=== PATIENT | male | born 1960 | race Caucasian/White ===

== ENCOUNTER 2024-09-11 07:44 | Inpatient (IN) | payer BC, SELFPAY ==
[2024-08-22 13:55] VITALS: BMI 39.4
[2024-08-22 14:01] LABS: Hematocrit 43.7 % (39.0-52.0); Hemoglobin 14.4 g/dL (13.0-18.0); Mean Corpuscular Hgb 29.6 pg (27.0-31.0); Mean Corpuscular Volume 89.7 fL (80.0-94.0); Mean Platelet Volume 11.7 fL (7.4-10.4); Platelet Count 155 10^3/uL (130-400); Red Blood Cell Count 4.87 10^6/uL (4.70-6.10); Red Cell Dist. Width 12.8 % (11.5-14.5); White Blood Cell Count 6.9 10^3/uL (4.8-10.8)
[2024-08-22 14:38] LABS: ALT (SGPT) 21 U/L (0-50); AST (SGOT) 29 U/L (17-59); Albumin 4.3 g/dl (3.5-5.0); Alkaline Phosphatase 77 U/L (38-126); Blood Urea Nitrogen 13 mg/dl (9-20); Calcium 9.7 mg/dl (8.4-10.2); Carbon Dioxide 27 mmol/L (22-30); Chloride 103 mmol/L (98-107); Estimated Creatinine Clearance 99 ml/min; Glucose 92 mg/dl (70-99); Potassium 4.1 mmol/L (3.5-5.1); Sodium 138 mmol/L (135-145); Total Bilirubin 0.3 mg/dl (0.2-1.3); Total Protein 6.7 g/dl (6.3-8.2); eGFR > 60.00
[2024-08-23 11:39] LABS: Glycohemoglobin (HgbA1c) 5.4 % (4.0-5.6)
[2024-09-04 15:46] VITALS: BMI 39.4
[2024-09-11] VITALS (26 sets, daily range): BP systolic 108–152; BP diastolic 68–106; BMI 39.4
--- NOTE | 2024-09-11 07:37 | W.PN.UPDATE ---
Update Note
Progress Note Update
R knee OA s/p R TKA w/ Dr Scott 09/11/24
DVT prophylaxis - ASA, b/l venous foot pumps
HTN - + parameters - monitor BP
Obesity, BMI 39.4 - would benefit from Cefadroxil upon d/c
Cholelithiasis, asymptomatic
History of prediabetes, A1c 5.4
Pt appropriate for early discharge 09/12/24
[2024-09-11] MEDS: CELEBREX 200 MG PO (08:04)
[2024-09-11] MEDS: TYLENOL 650 MG PO ×3 (08:04→20:30)
[2024-09-11] MEDS: NORMOSOL-R/PLASMALYTE-A 1000 IV ×2 (08:12→18:14)
[2024-09-11 08:13] LABS: Glucose - Point of Care 101 mg/dl (70-99)
[2024-09-11] MEDS: ROXICODONE 5 MG PO (13:24)
[2024-09-11] MEDS: DILAUDID 0.5 MG IV (15:26)
[2024-09-11] MEDS: TORADOL 15 MG IV (15:52)
[2024-09-11] MEDS: NEURONTIN 200 MG PO (17:05)
[2024-09-11] MEDS: LIPITOR 10 MG PO (18:14)
[2024-09-11] MEDS: VITAMIN D3 (cholecalciferol) 25 MCG PO (18:14)
[2024-09-11] MEDS: ASPIRIN 325 MG PO (18:14)
[2024-09-11] MEDS: ROXICODONE 10 MG PO ×2 (18:14→22:38)
[2024-09-11] MEDS: LIDOCAINE 4% PATCH 2 PATCH TOPICAL (18:15)
[2024-09-11] MEDS: ANCEF 5 IV (18:16)
[2024-09-11] MEDS: ZESTRIL 20 MG PO (18:17)
--- NOTE | 2024-09-11 18:20 | W.PN.UPDATE ---
Update Note
Progress Note Update
Patient stable S/P R TKR. VSS. Pulm: nonlabored. RLE: dressing CDI. Calf soft. Able to fully extend. Postop xray as expected. ASA for DVT prophylaxis. Plan for discharge home tomorrow with outpatient PT.
[2024-09-11] MEDS: TYLENOL PO (20:30)
[2024-09-11] MEDS: SENOKOT 17.2 MG PO (20:30)
[2024-09-11] MEDS: BACTROBAN 2% OINTMENT 1 APPLIC NASAL (20:30)
[2024-09-11] MEDS: DECADRON 4 MG PO (20:30)
[2024-09-11] MEDS: COLACE 100 MG PO (20:30)
--- NOTE | 2024-09-11 21:07 | PTCARENOTE ---
Received patient around 1625 via bed in stable condition. Right knee dressing intact with small amount of drainage. + sensation + movement to b/l LE. Patient oriented to room. Call ayala in reach.
[2024-09-11] MEDS: PEPCID 20 MG PO (21:36)
[2024-09-11] MEDS: NEURONTIN 300 MG PO (21:36)
[2024-09-12] MEDS: TYLENOL 650 MG PO ×3 (00:55→07:31)
[2024-09-12] MEDS: ANCEF 5 IV (01:07)
[2024-09-12 03:30] VITALS: BP 112/65
[2024-09-12] MEDS: ROXICODONE 5 MG PO ×3 (04:05→09:11)
[2024-09-12 07:18] VITALS: BP 117/80
[2024-09-12] MEDS: LIDOCAINE 4% PATCH 2 PATCH TOPICAL (07:29)
[2024-09-12] MEDS: SENOKOT 17.2 MG PO (07:30)
[2024-09-12] MEDS: DECADRON 4 MG PO (07:31)
[2024-09-12] MEDS: CELEBREX 200 MG PO (07:31)
[2024-09-12] MEDS: LIPITOR 10 MG PO (07:31)
[2024-09-12] MEDS: COLACE 100 MG PO (07:31)
--- NOTE | 2024-09-12 07:31 | W.PN.ORTHO ---
Today's Communication / Plan
-
Plan for discharge home with outpatient PT on Sunday
Assessment
.
Distal Motor Intact: Yes
Dressing:
Clean, dry and intact.
Assessment:
Doing well s/p R TKR
Plan
.
Surgery / Date: 09/11/2024
DVT Prophylaxis: Aspirin
Activity:
Out of bed.
PT/OT
Discharge Plan: Home
Subjective
.
.:
Patient resting comfortably. OOB last night. Complains of tourniquet pain
Vital Signs and Labs
.
Vital Signs and Labs:
Lab Results
08/22/24 12:47
08/22/24 12:47
Temp Pulse Resp BP Pulse Ox
97.6 F 64 12 117/80 95
09/12/24 07:18 09/12/24 07:18 09/12/24 07:18 09/12/24 07:18 09/12/24 07:18
Non-invasive Hgb result: 13.2
Physical Exam
-
Pulm: nonlabored
RLE: Dressing CDI. NVI. Able to fully extend
[2024-09-12] MEDS: BACTROBAN 2% OINTMENT 1 APPLIC NASAL (07:32)
[2024-09-12] MEDS: ZESTRIL PO (07:32)
[2024-09-12] MEDS: ASPIRIN 325 MG PO (07:32)
[2024-09-12] MEDS: VITAMIN D3 (cholecalciferol) 25 MCG PO (07:32)
[2024-09-12 08:21] VITALS: BP 117/80; BP 138/81; PULSE 64
--- NOTE | 2024-09-12 08:26 | W.PN.ORTHO ---
Today's Communication / Plan
-
Await PT recs. Did well w/ OT today.
D/c later today if remaining clinically stable.
Assessment
.
Distal Motor Intact: Yes
Dressing:
Small areas of old incisional bleeding. Dressing otherwise C/D/I.
Assessment:
R knee OA s/p R TKA w/ Dr Scott 09/11/24
DVT prophylaxis - ASA, b/l venous foot pumps
R thigh pain 2* tourniquet use in OR - mild per pt
- Did advise intermittent ice, continued use of Celebrex and Decadron as anti-inflammatories
- Pt asked about applying massage to area. Did advise caution as could cause increased incision bleeding. Pt to use sparingly and only if really needed
HTN - + parameters - BPs overall stable
Obesity, BMI 39.4 - would benefit from Cefadroxil upon d/c
Cholelithiasis, asymptomatic
History of prediabetes, A1c 5.4
Pt appropriate for early discharge 09/12/24
Plan
.
Surgery / Date: R TKA w/ Dr Scott 09/11/24
DVT Prophylaxis: Aspirin
Activity:
Out of bed.
PT/OT
Discharge Plan: Home w/ Outpatient PT
Subjective
.
.:
Patient resting comfortably in his chair.
Reports mild R thigh pain 2* tourniquet use.
Denies any other new complaints.
Eager for potential d/c today.
Vital Signs and Labs
.
Vital Signs and Labs:
Lab Results
08/22/24 12:47
08/22/24 12:47
Temp Pulse Resp BP Pulse Ox
97.6 F 64 12 117/80 95
09/12/24 07:18 09/12/24 07:18 09/12/24 07:18 09/12/24 07:18 09/12/24 07:18
Non-invasive Hgb result: 13.2
Physical Exam
-
HEENT: No pallor, cyanosis, or jaundice. Throat clear.
NECK: Supple. No JVD.
RESPIRATORY: Lungs clear to auscultation.
CVS: S1, S2 normal. RRR.�
ABDOMEN: Soft, non-tender. No distension. Obese.
EXTREMITIES: Expected post-surgical R knee edema. Strength equal, no calf pain with palpation/dorsiflexion. Calves soft.
[employer]: AOx3. No focal deficits. head of insight grossly intact
--- NOTE | 2024-09-12 08:33 | W.DS.TRANS ---
DC Summary - Spot Cleaner
-
Discharge Instructions:
Sleep Apnea Risk High
Discharge Diagnosis/Procedures R knee OA s/p R TKA w/ Dr Scott 09/11/24
Diet Regular
Activity As tolerated,With Walker
Driving Restrictions Not until seen by your Dr
Bathing Restrictions OK to Shower
Other Services PT
Wound Care Dressing to be removed 1 week post-surgery.
[place] to be removed at 2 week follow-up
appointment with surgeon's office.
Instructions:
Stand-Alone Forms: Total Hip/Knee Replacement D/C
Changes to Home Medications: Yes
Discharge Medications:
DC Medications w/original date entered in [employer]
atorvastatin 10 mg tablet 10 mg PO DAILY High Cholesterol 08/19/24
cholecalciferol (vitamin D3) 25 mcg (1,000 unit) capsule (Vitamin D3) 25 mcg PO DAILY Supplement 08/19/24
omega 1-ftm-oop-fish oil 1,000 mg (120 mg-180 mg) capsule (Fish Oil) 1 cap PO DAILY Supplement 08/19/24
semaglutide (weight loss) 2.4 mg/0.75 mL subcutaneous pen injector (Wegovy) 2.4 mg SC TH 08/19/24
turmeric root extract 500 mg tablet 1,000 mg PO DAILY 08/19/24
cefadroxil 500 mg capsule 500 mg PO BID infection prevention #14 caps 08/22/24
celecoxib 200 mg capsule 200 mg PO DAILY anti-inflammatory #14 caps 08/22/24
dexamethasone 4 mg tablet 4 mg PO BID inflammation #6 tabs 08/22/24
famotidine 20 mg tablet 20 mg PO HS GI prophylaxis #30 tabs 08/22/24
gabapentin 300 mg capsule 300 mg PO HS sleep/pain #10 caps 08/22/24
mupirocin 2 % topical ointment 1 applic topical BID infection prevention #1 tube 08/22/24
ondansetron 4 mg disintegrating tablet 4 mg PO Q6H PRN n/v #20 tabs 08/22/24
oxycodone 5 mg tablet 5 mg PO Q6H PRN 1 tab moderate pain, 2 tabs severe pain #30 tabs 08/22/24
acetaminophen 650 mg tablet,extended release 1,300 mg (2 x 650 mg) PO Q8H #60 tabs 09/11/24
aspirin 325 mg tablet 325 mg PO DAILY #30 tabs 09/11/24
docusate sodium 100 mg capsule 100 mg PO BID #30 caps 09/11/24
lisinopril 20 mg tablet 20 mg PO DAILY #1 tab 09/11/24
sennosides 8.6 mg tablet (Rashmi-zaria) 17.2 mg (2 x 8.6 mg) PO BID #30 tabs 09/11/24
lidocaine 4 % topical patch 2 - 3 patch topical DAILY #30 ea 09/12/24
Home Medication Changes
cefadroxil 500 mg capsule 500 mg PO BID infection prevention #14 caps 08/22/24
celecoxib 200 mg capsule 200 mg PO DAILY anti-inflammatory #14 caps 08/22/24
dexamethasone 4 mg tablet 4 mg PO BID inflammation #6 tabs 08/22/24
famotidine 20 mg tablet 20 mg PO HS GI prophylaxis #30 tabs 08/22/24
gabapentin 300 mg capsule 300 mg PO HS sleep/pain #10 caps 08/22/24
mupirocin 2 % topical ointment 1 applic topical BID infection prevention #1 tube 08/22/24
ondansetron 4 mg disintegrating tablet 4 mg PO Q6H PRN n/v #20 tabs 08/22/24
oxycodone 5 mg tablet 5 mg PO Q6H PRN 1 tab moderate pain, 2 tabs severe pain #30 tabs 08/22/24
acetaminophen 650 mg tablet,extended release 1,300 mg (2 x 650 mg) PO Q8H #60 tabs 09/11/24
aspirin 325 mg tablet 325 mg PO DAILY #30 tabs 09/11/24
docusate sodium 100 mg capsule 100 mg PO BID #30 caps 09/11/24
sennosides 8.6 mg tablet (Rashmi-zaria) 17.2 mg (2 x 8.6 mg) PO BID #30 tabs 09/11/24
lidocaine 4 % topical patch 2 - 3 patch topical DAILY #30 ea 09/12/24
Pending Results: Yes (Hep C antibody)
--- NOTE | 2024-09-12 08:34 | SLEEP.APNEA ---
Sleep Apnea Order
-
Patient screened as High Risk for Sleep Apnea on Stop Bang Questionnaire. Patient referred to [facility] for Pre-Study.

Name: MARII LEAL
: 1960
Home Phone: Use [email or web address] instead
Cell Phone: [f_Reg Other Phone]
Work Phone:
Address: [address] [place] [address]
City: [place]
State: [place]
Zip: [f_[facility] Zip]
Family Physician: Won Hargrove
Height 5 ft 10 in
Actual Weight 124.4 kg
Body Mass Index (BMI) 39.4
Ordering Provider: Jennifer Villa PA-C
[2024-09-12 09:00] VITALS: BP 107/54; O2SAT 98
--- NOTE | 2024-09-12 09:07 | CM ---
Reviewed the chart notes and spoke with the patient at the bedside. The patient's significant other will be staying with the patient while he recuperates. The patient's home is a two story residence with first floor master bedroom and bath. The
patient has a cane and rolling walker in the home. The patient reports no VN or SNF in the past. The patient confirmed his pharmacy of choice is [facility]. The patient anticipates going to outpatient therapy. Patient's son will be providing
transportation home today. CM continues to be available to patient/family and is monitoring medical plan for needs at discharge.
Plan: Discharge to home today with outpatient therapy.
[2024-09-12 10:17] LABS: Hepatitis C Antibody Negative (Negative)
== END 2024-09-12 10:45 | disposition home or self-care (01) | DRG 470 ==
LOC: 2 SOUTH 07:44
PROVIDERS: ADMITTING PHYSICIAN Orthopaedic Surgery; FAMILY PHYSICIAN Physician Assistant Medical
PROC: 0SRC0J9 Replacement of Right Knee Joint with Synthetic Substitute, Cemented, Open Approach (ICD-10-PCS; 2024-09-11)
DX: M17.11 Unilateral primary osteoarthritis, right knee (principal); Z68.41 Body mass index [BMI] 40.0-44.9, adult; I10 Essential (primary) hypertension; E66.01 Morbid (severe) obesity due to excess calories
CPT/HCPCS: 36415; 73560; 80053; 82962; 83036; 85027; 86803; 87070; 93005; 97162; 97166; 97530; C1713; C1776